=== PATIENT | male | born 1975 | race Caucasian/White ===

== ENCOUNTER 2016-10-22 22:17 | Emergency (ER) | payer MEDICAID ==
[~2016-10-22] VITALS: Ht 167.6 cm; Wt 106.0 kg
[~2016-10-22 22:17] MED LIST: IBUP-1542 PO; NO MEDS
[2016-10-22 22:32] VITALS: Ht 167.6 cm; Wt 106.0 kg
--- NOTE | 2016-10-23 01:05 | ERA ---
ER Documentation Chief Complaint Date/Time DATE: 10/23/16 TIME: 01:04 Chief Complaint right shoulder pain x 1 week HPI This is a 41-year-old male with a chief complaint of right shoulder pain 1 week. Patient is a construction ironworker. Patient states that the pain is worse with movement. Patient has taken Tylenol without relief. Patient has no other complaints and describes no other associated manifestations. No recent travel and vaccination status is up-to-date. Nursing notes have been reviewed and are consistent with history given. ROS All systems reviewed and are negative except as per history of present illness. Medications Home Meds Active Scripts Hydrocodone/Acetaminophen ([place] 5-325 Tablet) 1 Each Tablet, 1 TAB PO Q6H Y for PAIN, #20 TAB Prov:LORAINE HERRERA PA-C 10/23/16 Ibuprofen* (Motrin*) 600 Mg Tab, 600 MG PO Q8, #30 TAB 0 Refills Prov:IZABELLA GONZALEZ PA-C 09/04/15 Reported Medications [No Meds] No Conflict Check 04/06/12 Allergies Allergies: Coded Allergies: No Known Allergy (Unverified , 05/18/13) PMhx/Soc Medical and Surgical Hx: pt denies Medical Hx, pt denies Surgical Hx History of Surgery: No Anesthesia Reaction: No Hx Neurological Disorder: No Hx Respiratory Disorders: No Hx Cardiac Disorders: No Hx Psychiatric Problems: No Hx Miscellaneous Medical Probl: No Hx Alcohol Use: No Hx Substance Use: No Hx Tobacco Use: No Smoking Status: Never smoker Physical Exam Vitals Vital Signs Date Time Temp Pulse Resp B/P Pulse Ox O2 Delivery O2 Flow Rate FiO2 10/22/16 22:32 98.7 76 18 125/80 99 Physical Exam Const: Overweight 41-year-old male in no acute distress Head: Atraumatic Eyes: Normal Conjunctiva ENT: Normal External Ears, Nose and Mouth. Neck: Full range of motion..~ No meningismus. Resp: Clear to auscultation bilaterally Cardio: Regular rate and rhythm, no murmurs Abd: Soft, non tender, non distended. Normal bowel sounds Skin: No petechiae or rashes Back: No midline or flank tenderness Ext: No cyanosis, or edema. Decreased Active and passive ROM in R shoulder. Full ROM in elbow. Neur: Awake and alert. NV intact bilaterally . Neurovascularly. Psych: Normal Mood and Affect Results 24 hrs Current Medications Medications (Trade) Dose Ordered Sig/Beth Route PRN Reason Start Time Stop Time Status Last Admin Dose Admin Acetaminophen/ Hydrocodone Bitart ([place] (5/325)) 1 tab ONCE ONCE PO 10/23/16 01:30 10/23/16 01:31 DC 10/23/16 01:45 Procedures/MDM This is a 41-year-old male presented with right shoulder pain 1 week as described in history and physical examination. X-ray was read by the radiologist given the following impression: 1. No acute fracture or dislocation is seen. 2. Calcific density superior lateral aspect of the humeral head suggestive of a calcific bursitis. At this time I most likely diagnosis is pain of right shoulder secondary to calcific bursitis. I have little suspicion for frozen shoulder or neurovascular compromise or acute bony pathology. I have spoke with the patient regarding their condition and future management. They have verbally responded that they understand their status and treatment plan. The patients vitals are stable, and their current condition is appropriate for discharge. The patient will be given discharge instructions with return precautions. Departure Diagnosis: Primary Impression: Shoulder pain Qualified Code: M25.511 - Right shoulder pain, unspecified chronicity Condition: Stable Additional Instructions: Follow up with your PCP within the next 1-3 days for a more thorough evaluation and a possible referral to a specialist. Return the the emergency department immediately if symptoms worsen or change. If you have any questions regarding medications, ask your pharmacist or us before you leave. If any adverse reactions occur while taking your medications, discontinue the treatment and return to the emergency department immediately. Take your medications as directed, and complete the entire course of treatment. LORAINE HERRERA PA-C Oct 23, 2016 01:05
[2016-10-23] MEDS ORDERED: HYDROCODONE/APAP (5/325) TAB PO ONE (01:30)
--- NOTE | 2016-10-23 02:11 | RADRPT ---
PROCEDURE: XR Right Shoulder. CLINICAL INDICATION: Pain TECHNIQUE: Three views of the right shoulder are available for review. COMPARISON: None available FINDINGS: No acute fracture or dislocation is seen. The glenohumeral joint is unremarkable. The acromioclavi cular joint is intact. The visualized portions of the right clavicle and upper right rib cage are u nremarkable. There is a well-defined slightly irregular calcified density at the superior lateral a spect of the humeral head.. Bone mineralization is within normal limits. Soft tissues are unremarka ble. IMPRESSION: 1. No acute fracture or dislocation is seen. 2. Calcific density superior lateral aspect of the humeral head suggestive of a calcific bursitis. RPTAT: HMVK .Cristo Garza MD, Date Time Electronically viewed and signed by .Cristo Garza MD, MD on 10/23/2016 02:10 .K/
[2016-10-23] MEDS ORDERED: HYDR-906 PO (02:15)
== END 2016-10-23 02:20 | disposition home or self-care (01) ==
LOC: FTE 22:17
DX: M25.511 Pain in right shoulder (principal)
CPT/HCPCS: 73030; Z7502; Z7610

== ENCOUNTER 2017-07-11 15:41 | Emergency (ER) | END 2017-07-11 16:59 | disposition home or self-care (01) ==

== ENCOUNTER 2018-02-05 10:27 | Emergency (ER) | END 2018-02-05 12:01 | disposition home or self-care (01) ==

== ENCOUNTER 2018-08-30 16:18 | Emergency (ER) | payer MEDICAID ==
[~2018-08-30] VITALS: Wt 103.4 kg
[~2018-08-30 16:18] MED LIST changes: +BACITUD TOP; +BISM262O23 PO; +CEPH-443 PO; +HYDR-4011 PO; +ONDA8TAB14 PO
[2018-08-30 16:21] VITALS: BP 124/65; PULSE 72; RESP 18
[2018-08-30] MEDS ORDERED: LOPE2CAP PO (17:09)
--- NOTE | 2018-08-30 17:22 | ERD ---
ER Documentation Chief Complaint Chief Complaint DIARRHEA FOR 3 DAYS. SAME DAUGHTER. NO RECENT TRAVEL. NO NEW FOODS. HPI 42-year-old male presents with complaint of diarrhea for the past 3 days. Denies any any hematochezia. Denies any vomiting, abdominal pain, fevers, chills. Denies any treatments. Denies any recent travel. Daughters has the same symptoms. ROS All systems reviewed and are negative except as per history of present illness. Medications Home Meds Active Scripts Loperamide Hcl* (Imodium*) 2 Mg Capsule, 2 MG PO .AFTER EA LOOSE BM PRN for DIARRHEA, #10 TAB Prov:ALMA JANE 08/30/18 Bacitracin* (Bacitracin Oint (UD)*) 1 Applic Oint, 1 APPLIC TOP ONCE, #10 PKT APPLY TO Prov:NASREEN CAREY PA-C 02/05/18 Cephalexin* (Keflex*) 500 Mg Capsule, 500 MG PO QID for 7 Days, CAP Prov:NASREEN CAREY PA-C 02/05/18 Ibuprofen* (Motrin*) 600 Mg Tab, 600 MG PO Q6, #30 TAB Prov:NASREEN CAREY PA-C 02/05/18 Bismuth Subsalicylate* (Pepto-Bismol*) 262 Mg/15 Ml Oral.susp, 30 ML PO TID for DIARRHEA for 4 Days, ML Prov:STEVEN BEST MD 07/11/17 Ondansetron (Ondansetron Odt) 8 Mg Tab.rapdis, 8 MG PO Q6H PRN for NAUSEA AND/OR VOMITING, #6 TAB Prov:STEVEN BEST MD 07/11/17 Hydrocodone/Acetaminophen ([place] 5-325 Tablet) 1 Each Tablet, 1 TAB PO Q6H PRN for PAIN, #20 TAB Prov:LORAINE HERRERA PA-C 10/23/16 Ibuprofen* (Motrin*) 600 Mg Tab, 600 MG PO Q8, #30 TAB 0 Refills Prov:IZABELLA GONZALEZ PA-C 09/04/15 Reported Medications [No Meds] No Conflict Check 04/06/12 Allergies Allergies: Coded Allergies: No Known Allergy (Unverified , 05/18/13) PMhx/Soc History of Surgery: No Anesthesia Reaction: No Hx Neurological Disorder: No Hx Respiratory Disorders: No Hx Cardiac Disorders: No Hx Psychiatric Problems: No Hx Miscellaneous Medical Probl: No Hx Alcohol Use: No Hx Substance Use: No Hx Tobacco Use: No FmHx Family History: No diabetes, No coronary disease, No other Physical Exam Vitals Vital Signs Date Temp Pulse Resp B/P (MAP) Pulse Ox O2 O2 Flow FiO2 Time Delivery Rate 08/30/18 98.3 72 18 124/65 98 16:21 (84) Physical Exam Const: No acute distress Head: Atraumatic Eyes: Normal Conjunctiva ENT: Normal External Ears, Nose and Mouth. Neck: Full range of motion. No meningismus. Resp: Clear to auscultation bilaterally Cardio: Regular rate and rhythm, no murmurs Abd: Soft, non tender, non distended. Normal bowel sounds Skin: No petechiae or rashes Back: No midline or flank tenderness Ext: No cyanosis, or edema Neur: Awake and alert Psych: Normal Mood and Affect Procedures/MDM MDM: Patient's presentation is consistent of viral gastroenteritis. Patient given Rx for Imodium. I have low suspicion for acute coronary syndrome, AAA, mesenteric ischemia, lower lobe pneumonia, DKA, bowel perforation, cholecystitis, choledocholithiasis, ascending cholangitis, hepatic abscess, pancreatitis, PUD, splenic rupture, diverticulitis, pyelonephritis, n ephrolithiasis, appendicitis, discharge. Departure Diagnosis: Primary Impression: Gastroenteritis Condition: Stable Patient Instructions: Diet, Vomiting Or Diarrhea [6Yr-Adult] Referrals: [facility] YOU HAVE RECEIVED A MEDICAL SCREENING EXAM AND THE RESULTS INDICATE THAT YOU DO NOT HAVE A CONDITION THAT REQUIRES URGENT TREATMENT IN THE EMERGENCY DEPARTMENT. FURTHER EVALUATION AND TREATMENT OF YOUR CONDITION CAN WAIT UNTIL YOU ARE SEEN IN YOUR DOCTORS OFFICE WITHIN THE NEXT 1-2 DAYS. IT IS YOUR RESPONSIBILITY TO MAKE AN APPOINTMENT FOR FOLOW-UP CARE. IF YOU HAVE A PRIMARY DOCTOR --you should call your primary doctor and schedule an appointment IF YOU DO NOT HAVE A PRIMARY DOCTOR YOU CAN CALL OUR PHYSICIAN REFERRAL HOTLINE AT IF YOU CAN NOT AFFORD TO SEE A PHYSICIAN YOU CAN CHOSE FROM THE FOLLOWING [facility] [id number] [facility]. [facility] [address] [facility] [address] [facility]. [facility] [address] [facility] [address] [facility]. [facility]. [address] Additional Instructions: FOLLOW UP WITH YOUR PRIMARY CARE PHYSICIAN TOMORROW.Return to this facility if you are not improving as expected. ALMA JANE Aug 30, 2018 17:22
== END 2018-08-30 17:26 | disposition home or self-care (01) ==
LOC: FTE 16:18
DX: K52.9 Noninfective gastroenteritis and colitis, unspecified (principal)
CPT/HCPCS: 99282